=== PATIENT | female | born 1965 | race Caucasian/White ===

== ENCOUNTER 2016-08-10 05:21 | Day surgery (SDC) | payer BC, OTHER ==
[2016-08-02 11:57] VITALS: BMI 30.2
[2016-08-10] MEDS ORDERED: LIDOCAINE 1%/EPI 1:100000 (50 ML MULTI DOSE VIAL) ONE (07:22)
[2016-08-10] MEDS ORDERED: BUPIVACAINE HCL/PF 0.5% (5MG/ML) 10 ML VIAL ONE (07:22)
[2016-08-10] MEDS ORDERED: MIDAZOLAM HCL 2 MG/2 ML SINGLE DOSE VIAL ONE (08:05)
[2016-08-10] MEDS ORDERED: PROPOFOL 20 ML ONE ×3 (08:06→08:29)
[2016-08-10] MEDS ORDERED: SUCCINYLCHOLINE CHLORIDE 200 MG/10 ML VIAL ONE (08:07)
[2016-08-10] MEDS ORDERED: DESFLURANE GAS 240 ML BOTTLE IH ONE (08:09)
--- NOTE | 2016-08-10 08:09 | HP ---
[facility]ellite [facility] - Chief Complaint Chief Complaint: left knee pain - Past Medical History Allergies/Adverse Reactions: Allergies Allergy/AdvReac Type Severity Reaction Status Date / Time No Known Drug Allergies Allergy Verified 08/10/16 07:17 ...LMP Comment: 04/16/16 - Current Medications Current Medications: Home Medications Medication Instructions Recorded Cholecalciferol (Vitamin D3) 2,000 unit PO DAILY 08/02/16 [Vitamin D3] Garlic 1 each PO DAILY 08/02/16 Simvastatin 20 mg PO HS 08/02/16 Latanoprost 0.005% Eye Drops 1 drop OU HS 08/10/16 [Xalatan 0.005% Eye Drops -] Oxycodone HCl/Acetaminophen 1 - 2 tab PO Q6H #40 tab MDD 8 08/10/16 [Percocet 5-325 mg Tablet -] Satellite Physical Exam - Physical Examination Vital Signs: Vital Signs Period Temp Pulse Resp BP Sys/[place] Pulse Ox Last 24 Hr 98.0 F 100 20 135/78 100 General Appearance: Well Nourished, Well Developed, Alert & Oriented x3 ENT: Clear Lung: Normal air movement Heart: Regular rate & rhythm Extremities: Other (left knee- + swelling, + ttp ,decr rom, + mcmurrays, + apleys, nvi MRI + mt) Neurological: Intact, Alert, Oriented Satellite Impression/Plan - Impression/Plan Impression: left knee internal derangement Operative Procedure: left knee arthroscopy Date to be Performed: 08/10/16
[2016-08-10] MEDS ORDERED: LIDOCAINE HCL/PF 2% SDV 5ML VIAL ONE (08:23)
[2016-08-10] MEDS ORDERED: LIDOCAINE 1%/EPI 1:100000 (50 ML MULTI DOSE VIAL) INF ONE (08:28)
[2016-08-10] MEDS ORDERED: BUPIVACAINE HCL/PF 0.5% (5MG/ML) 10 ML VIAL IJ ONE (08:28)
[2016-08-10] MEDS ORDERED: KETOROLAC TROMETHAMINE 30 MG/1 ML VIAL ONE (08:58)
[2016-08-10] MEDS ORDERED: ACETAMINOPHEN 325 MG TABLET (FP) PO PRN (08:59)
[2016-08-10] MEDS ORDERED: ONDANSETRON 4 MG/2 ML VIAL IVPUSH PRN ×2 (08:59→09:02)
[2016-08-10] MEDS ORDERED: LACTATED RINGERS SOLUTION 1,000 ML IV SCH ×2 (09:00→09:15)
[2016-08-10] MEDS ORDERED: oxyCODONE HCL 5 MG TABLET PO PRN ×2 (09:02)
--- NOTE | 2016-08-10 09:18 | OP ---
Operative Note - Note: Operative Date: 08/10/16 Pre-Operative Diagnosis: internal derangement left knee Operation: arthroscopy left knee with partial medial mensicectomy Post-Operative Diagnosis: Same as Pre-op Surgeon: Juan Kang Anesthesia: General Operative Report Dictated: Yes
[2016-08-10 09:42] VITALS: TEMP 97.8
[2016-08-10 13:21] VITALS: BP 128/80; PULSE 82
--- NOTE | 2016-08-10 14:04 | OP ---
DATE OF OPERATION: 08/10/2016 PREOPERATIVE DIAGNOSIS: Internal derangement of the left knee. POSTOPERATIVE DIAGNOSIS: Internal derangement of the left knee. PROCEDURES: Arthroscopy, left knee, partial medial meniscectomy. SURGICAL ATTENDING: Stuart Chaney MD DENTAL LABORATORY ASSISTANT: Juan Kang MD ANESTHESIA: General with LMA. CLOSURE: 4-0 nylon. COMPLICATIONS: None. CONDITION: To recovery room in stable condition. DESCRIPTION OF OPERATIVE PROCEDURE: Patient was taken to the operating room on August 10, 2016. General anesthesia with LMA was administered by the anesthesiologist. Left lower extremity was prepped and draped in usual sterile fashion. The supralateral and medial lateral infrapatellar portal sites were infiltrated with 1% Xylocaine with epinephrine. Supralateral portal was made with a 15 blade blunt trocar. The left knee was aspirated and inflated with a cocktail of 10 mL of 1% Xylocaine with 10 mL of 0.5% Marcaine and 20 mL of arthroscopic saline. Medial and lateral infrapatellar portals were then made with a 15 blade blunt trocar. The scope was placed in the lateral infrapatellar portal and up into the suprapatellar pouch. Pouch was visualized to be clean. The medial and lateral gutters were visualized to be clean. The undersurface of the patella and trochlea were visualized to be intact. With valgus stress on the knee, the medial compartment was entered. The medial meniscus was found to have a large flap tear that was flipped underneath the meniscus. It was teased out by using a probe to expose a large flap tear of the posterior horn. This was debrided to smooth and stable meniscal tissue using a meniscal biter and an arthroscopic shaver. The medial femoral condyle was run and found to be intact as was the medial tibial plateau. At 90 degrees, the ACL was visualized, probed and found to be intact. In the figure-four position, the lateral compartment was entered. Lateral meniscus was visualized, probed and found to be intact. The lateral femoral condyle was run and found to be intact as was the lateral tibial plateau. The knee was irrigated out with copious amounts of irrigation. The portals were closed with 4-0 nylon. Prior to closure, 20 mL of 0.5% Marcaine was infused into the knee for postoperative analgesia. A sterile pressure dressing was placed over the knee. Patient was awakened from anesthesia and transferred to recovery room in stable condition. No complications. Estimated blood loss negligible. Juan Kang MD, dictating for MD STUART Hanson M.D. [id number]
--- NOTE | 2016-08-11 13:11 | PATH ---
Surgical Pathology Report Patient Name: ISAAC RODAS [facility]. Rec. #: [id number] /Age/Gender: 1965 (Age: 51) / F Account: [id number] Location: [facility] SURGICAL Taken: 08/10/2016 Received: 08/10/2016 Reported: 08/11/2016 Physicians: Stuart Chaney M.D. Specimen(s) Received SHAVINGS LEFT KNEE Clinical History Internal derangement, medial meniscal tear Final Diagnosis KNEE, LEFT, ARTHROSCOPIC SHAVING: FIBROCARTILAGE WITH MYXOID DEGENERATIVE CHANGES, ALONG WITH PORTIONS OF SYNOVIUM AND HYALINE CARTILAGE. Electronically Signed Joshua Nina M.D. Gross Description Received in formalin, labeled "left knee shavings," is a 4.8 x 4.0 x 0.5 cm. aggregate of hanley-yellow soft tissue fragments. A manufacturer's service representative portion is submitted in one cassette. 08/10/201608/10/2016
== END 2016-08-10 11:30 | disposition home or self-care (01) ==
LOC: JASU-SURG 05:21
PROVIDERS: ATTEND Orthopaedic Surgery
PROC: 0SBD4ZZ Excision of Left Knee Joint, Percutaneous Endoscopic Approach (ICD-10-PCS; principal; 2016-08-10 08:00)
DX: M23.204 Derangement of unspecified medial meniscus due to old tear or injury, left knee (principal)
CPT/HCPCS: 84703; 88304-TC; 94760; 97116-GP